=== PATIENT | female | born 1935 | race Two or more races ===

== ENCOUNTER 2017-07-12 10:47 | Emergency (ER) | payer OTHER ==
[~2017-07-12] VITALS: Ht 165.1 cm; Wt 83.9 kg
[~2017-07-12 10:47] MED LIST: AMBIEN10 MG; CIPRO500 MG PO; COZAAR50 MG; DOXAZOSIN MESYLA4 MG; FLAGYL500MG PO; INTESTINEX1 CAP PO; LOSARTAN POTAS100 MG; NEURONTIN800 MG; NITROFURANTOIN100 GM; PEPCID20 MG; PREDNISOLONE SO10 MG; SYNTHROID150 MCG; TIZANIDINE HCL2 M1; ULTRAM50 MG; VERAPAMIL HCL40 MG
== END 2017-07-12 18:00 | disposition home or self-care (01) ==
LOC: ER 10:47
DX: K62.5 Hemorrhage of anus and rectum (principal); N39.0 Urinary tract infection, site not specified

== ENCOUNTER 2017-07-17 07:09 | Outpatient (CLI) | payer OTHER | END 2017-07-17 07:17 | disposition home or self-care (01) | LOC: NUCLEAR 07:09 | DX: C34.32 Malignant neoplasm of lower lobe, left bronchus or lung (principal) | CPT/HCPCS: 78815; A9552 ==

== ENCOUNTER 2017-09-04 11:28 | Outpatient (CLI) | payer OTHER | END 2017-09-04 15:19 | disposition home or self-care (01) | LOC: RAD 11:28 | DX: C34.11 Malignant neoplasm of upper lobe, right bronchus or lung (principal) ==